=== PATIENT | male | born 1980 | race Caucasian/White ===

== ENCOUNTER 2016-07-13 22:24 | Emergency (ER) | payer OTHER ==
[2016-07-13 22:31] VITALS: BP 142/104; PULSE 77; RESP 16; TEMP 97.9; O2SAT 96
[2016-07-13] MEDS ORDERED: CIPROFLOXACIN 0.3% DROPS PREPACK OPHT.BTL TAKEHOME ONE (22:46)
--- NOTE | 2016-07-13 22:48 | EDPHY ---
H & P HPI/ROS: Chief complaint: Eye irritation History of present illness: This is a 36-year-old male who presents to the emergency department for eye irritation. Patient reports the onset of symptoms over the last day. He states the eyes are red, itchy, he has had clear tearing and now pustular discharge. The discharge is matting his eyelids shut in the morning. 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 He has also had mild cold-like symptoms. He denies other associated signs or symptoms including no actual eye pain, no visual disturbances. He does not use contacts. He does not use glasses. He has never had eye surgery. Smoking Status: Never smoked Physical Exam: General: Alert, nontoxic Eyes: Periorbital tissue is unremarkable. Eyes with pustular discharge bilaterally. Diffuse injection of the conjunctiva bilaterally. No subconjunctival hemorrhage. No hyphema. No hypopyon. PERRLA. EOM intact. Red reflex present bilaterally. ENT: Tympanic membranes, external auditory canals, external ears and surrounding soft tissue including over the mastoids are unremarkable. Nasopharynx is not injected. There is no rhinorrhea. Oropharynx is not injected. There is no edema. There is no exudate. There is no asymmetry. The uvula is midline. No elevation of the tongue. There is no hoarseness, no drooling, no trismus, no stridor. Skin: No lesions to the face. Constitutional: Initial Vital Signs Temperature (C) 36.6 C 07/13/16 22:27 Heart Rate 77 07/13/16 22:27 Respiratory Rate 16 07/13/16 22:27 Blood Pressure 142/104 H 07/13/16 22:27 O2 Sat (%) 96 07/13/16 22:27 O2 Delivery Mode Room Air Allergies/Adverse Reactions: No Known Allergies Allergy (Unverified 07/13/16 22:26) Home Medications: Medication Instructions Recorded Adderall 20 mg (*) 07/13/16 Imitrex 07/13/16 MDM/Departure - MDM Medications Given: Discontinued Medications Ciprofloxacin (Ciloxan 0.3% Opht Drops Prepack) 1 btl TAKEHOME EDNOW ONE Stop: 07/13/16 22:47 Last Admin: 07/13/16 23:00 Dose: 1 btl ED Course/Re-evaluation: Patient seen under the supervision of my secondary supervising physician Dr. Anand Shelton. Patient presents to the emergency department for eye discomfort. Patient is nontoxic. I do believe his history and physical exam is consistent with a conjunctivitis. He started on ciloxin. Patient is discharged home. He is referred to ophthalmology for recheck. Return precautions are given. Patient voiced understanding and agreement with plan. - Depart Disposition: Home, Routine, Self-Care Clinical Impression: Conjunctivitis Qualifiers: Conjunctivitis type: acute Acute conjunctivitis type: unspecified Laterality: bilateral Qualified Code(s): H10.33 - Unspecified acute conjunctivitis, bilateral Condition: Good Instructions: Conjunctivitis (ED) Additional Instructions: Follow-up with Ophthalmology for continued evaluation and care If symptoms worsen or new symptoms develop return to the emergency room for recheck Placed 1 drop of the eye antibiotic in each eye every 2 hours while awake for the first 2 days then every 4 hours while awake for the next 5 days Referrals: ANAND SINGLETON [Other] - As per Instructions Shimon Sy MD [Medical Doctor] - As per Instructions
== END 2016-07-13 23:07 | disposition home or self-care (01) ==
DX: H10.33 Unspecified acute conjunctivitis, bilateral (principal)